=== PATIENT | female | born 1980 | race Caucasian/White ===

== ENCOUNTER 2019-04-19 14:11 | Outpatient (CLI) | payer BC | END 2019-04-19 14:12 | disposition home or self-care (01) | LOC: ULT 14:11 | PROVIDERS: ATTEND Family Medicine | DX: R06.02 Shortness of breath (principal); I08.1 Rheumatic disorders of both mitral and tricuspid valves | CPT/HCPCS: 93306 ==

== ENCOUNTER 2019-07-01 03:20 | Observation (INO) | payer BC ==
[2019-07-01] MEDS ORDERED: hydrALAZINE 20 MG/ML VIAL SLOW IVP PRN ×2 (03:33→03:56)
[2019-07-01] MEDS ORDERED: Betamet Acet/Betamet Na Ph 30 MG/5 ML VIAL ONE (03:54)
[2019-07-01] MEDS ORDERED: Acetaminophen 500 MG TAB PO PRN (03:56)
[2019-07-01] MEDS ORDERED: Promethazine HCl 25 MG/ML VIAL IM PRN (03:56)
[2019-07-01] MEDS ORDERED: Butorphanol Tartrate 1 MG/ML VIAL SLOW IVP PRN (03:56)
[2019-07-01] MEDS ORDERED: Ondansetron PF 4 MG/2 ML Vial IVP PRN (03:56)
[2019-07-01] MEDS ORDERED: Lactated Ringer's 1,000 ML IV SCH (04:00)
[2019-07-01] MEDS: Betamet Acet/Betamet Na Ph 30 MG/5 ML VIAL IM SCH (04:00)
--- NOTE | 2019-07-01 04:22 | PDOC.LDHP ---
Labor and Delivery H&P Chief complaint: other (bleeding) HPI: 39 y/o G1 at 34w5d, patient of Dr. Bateman, presents with sudden onset of vaginal bleeding. She was sleeping and awoke to blood dripping between her legs. Denies any pain but feels pressure, like her "pants are too tight." Denies LOF or decreased FM. Is currently undergoing treatment for yeast infection, on day 2 with Monistat 3. ROS neg for HEENT, cv, pulm, gi, gu, neuro, psych, skin, musculoskeletal or constitutional symptoms other than mentioned above. OB History Details: First Current complications: none Past Medical History: None Current medications: pre- vitamins Previous surgical history: other (wisdom teeth) Allergies/Adverse Reactions: Allergies Allergy/AdvReac Type Severity Reaction Status Date / Time No Known Allergies Allergy Verified 07/01/19 03:42 Social history: none - Physical Exam Vital signs reviewed and normal: yes General: NAD, resting Lungs: nonlabored breathing Abdomen: gravid Extremeties: no edema FHT: category 1 (140s, mod variability, + accels, no decels) [place] contractions every: q2 - Vaginal Exam cm dilated: 2 (SSE performed, small amount of bleeding noted) Effacement: 50% Station: -1 - Assessment 39 y/o G1 at 34w5d with PTL vs abruption. Patient stable at this time with small bleeding currently. status reassuring with reactive NST. - Plan Plan: admit to L&D -: -Celestone for lung maturity -Pad counts -IV fluids -Blood type pending -US to assess placental location, CHERRI
[2019-07-01] MEDS ORDERED: FLU VACC QS2019-20(6MOS UP)/PF 60 MCG/0.5 ML SYRINGE IM ONE (05:00)
[2019-07-01 05:15] VITALS: BMI 23.3
[2019-07-01] MEDS: Lactated Ringer's 1,000 ML IV SCH ×2 (05:53→10:16)
[2019-07-01 06:09] LABS: Hemoglobin 13.2 g/dL (12.0-16.0); Mean Corpuscular HGB CONC 33.6 g/dL (32.0-36.0); Mean Corpuscular Hemoglobin 30.2 pg (27.0-31.0); Mean Platelet Volume 8.5 fL (7.4-10.4); Platelet Count 270 thou/uL (130-400); RBC Distribution Width 11.9 % (11.5-14.5); Red Blood Cell (RBC) Count 4.36 mill/uL (4.20-5.40); White Blood Cell (WBC) Count 18.3 thou/uL (4.8-10.8)
[2019-07-01 06:18] LABS: Medtox Reader # READER 1
[2019-07-01 06:19] LABS: Amphetamine Not Detected (NotDetected); Barbiturates Screen Not Detected (NotDetected); Benzodiazepine Screen Not Detected (NotDetected); Cocaine Metabolite Screen Not Detected (NotDetected); Medtox Control Line Valid? VALID (VALID); Methadone Not Detected (NotDetected); Methamphetamine Not Detected (NotDetected); Opiate Screen Not Detected (NotDetected); Oxycodone Screen Not Detected (NotDetected); Phencyclidine (PCP) Not Detected (NotDetected); THC/Cannabinoid Screen Not Detected (NotDetected); Tricyclic Screen Not Detected (NotDetected)
[2019-07-01] MEDS ORDERED: Penicillin G Potassium 5 MILL.UNITS VIAL ONE (06:30)
[2019-07-01] MEDS ORDERED: Penicillin G Potassium 5 MILL.UNITS in Sodium Chloride 0.9% 100 ML IVPB SCH (06:30)
[2019-07-01 06:50] LABS: HBSAg Index 0.18 S/CO (0-0.99); Hep B Surf Ag Non-Reactive S/CO (NonReactive); Syphilis Antibody Nonreactive (Nonreactive); Syphilis Antibody Index 0.08 S/CO (<1.00 Non-Reactive)
--- NOTE | 2019-07-01 09:08 | ULT ---
PRELIMINARY REPORT/[facility]/EMERGENCY AFTER HOURS PROCEDURE: EXAM: US Obstetrical, Complete >14 weeks. CLINICAL HISTORY: Hx: vag bleeding at 34wks, r/o abruption. Previa ruled out by prior scan(per MD). see notes on last i mage. thanks TECHNIQUE: Transabdominal imaging of the maternal pelvis and a > 14 week gestation with image documentation. COMPARISON: None provided. FINDINGS: FETUS: There is a single living intrauterine gestation, estimated gestational age 34 weeks 5 days POSITION: position is cephalic. HEART RATE: The heart rate is 149 beats per minute. BIOMETRICS: Based on composite biometry, the estimated gestational age by ultrasound is 34 week s 5 days corresponding to a due date of 08/07/2019. The estimated weight is 2634 g. ANATOMIC SURVEY: The visualized anatomy is unremarkable. PLACENTA: The placenta is located to the right. No sonographic evidence for previa or abruption. AMNIOTIC FLUID: Within normal limits. The CHERRI is 19.1 cm CERVIX: Poorly demonstrated. IMPRESSION: Single viable intrauterine . No acute abnormality. Specifically there is no evidence for pl acental abruption ELECTRONICALLY SIGNED BY: Jerson Lara MD Jul 01, 2019 5:25:32 AM SCHEDULING ANALYST This report is intended for review by the ordering physician only, in accordance of law. If you recei ve this report in error, please call [facility] at [phone]. FINAL REPORT EMERGENCY AFTER HOURS LIMITED OB ULTRASOUND: DATE: 07/01/19 TIME: 0500 hours IMPRESSION: Single intrauterine at 34 weeks/5 days. heart rate at 149 bpm. No evidence for placental disruption. No evidence for placenta previa. CHERRI 19.1 cm. This report is in agreement with preliminary report by [facility]. POS: [facility]
[2019-07-01] MEDS: Penicillin G 2.5 MILL.units 2.5 MILL.UNITS in Premix Bag 1 BAG IVPB SCH ×3 (11:25→20:59)
[2019-07-01] MEDS ORDERED: Calcium Carbonate 500 MG ChewTAB PO PRN (20:06)
[2019-07-01] MEDS: Calcium Carbonate 500 MG ChewTAB PO PRN (20:28)
--- NOTE | 2019-07-01 21:51 | PDOC.EVN ---
Event Note - Event Note Event Note: Pt seen and examined. VSS. Uterus nontender. Pads examined as well - one overnight pad soaked with blood from home, one hospital pad with a moderate spot of blood. She did receive the first dose of celestone at 0400. I started PCN for possible labor. She is clare every 2-4 minutes and feeling moderately crampy. Advised continued bedrest and observation of bleeding. This either represents marginal abruption or labor. Continued observation for now. FHT category I. EGA 34w4d. Primip.
--- NOTE | 2019-07-01 21:53 | PDOC.EVN ---
Event Note - Event Note Event Note: Pt seen and reassessed. Bleeding has slowed significantly, now with only a small smear of blood in the pad. CTX have stopped as well. She feels nothing. Has had 12 hours of PCN for possible PTL. Can discontinue abx now. Will get second dose of celestone in the AM. Also discussed repeat U/S in AM to better characterize the placenta and fluid. Can shower in AM. FHT have been category I all day. No repeat vaginal exam b/c contractions have ceased. Continue external monitors.
[2019-07-02] MEDS: Betamet Acet/Betamet Na Ph 30 MG/5 ML VIAL IM SCH (04:11)
[2019-07-02] MEDS: Calcium Carbonate 500 MG ChewTAB PO PRN ×2 (04:23→07:51)
[2019-07-02 06:27] LABS: Hemoglobin 10.5 g/dL (12.0-16.0); Mean Corpuscular HGB CONC 34.6 g/dL (32.0-36.0); Mean Corpuscular Hemoglobin 31.2 pg (27.0-31.0); Mean Corpuscular Volume 90.1 fL (78.0-98.0); Mean Platelet Volume 8.2 fL (7.4-10.4); Platelet Count 260 thou/uL (130-400); RBC Distribution Width 11.7 % (11.5-14.5); Red Blood Cell (RBC) Count 3.36 mill/uL (4.20-5.40); White Blood Cell (WBC) Count 30.1 thou/uL (4.8-10.8)
[2019-07-02] MEDS: Lactated Ringer's 1,000 ML IV SCH (08:01)
--- NOTE | 2019-07-02 08:09 | ULT ---
Exam: LIMITED OB ULTRASOUND: HISTORY: Vaginal bleeding. 34 weeks . COMPARISON: 06/21/2019. FINDINGS: Single intrauterine gestation. Vertex presentation. Limited evaluation the cervix. Placenta is located to the right side of the patient. heart tones: 132 bpm. Amniotic fluid index 19.1 cm. Estimated weight 2649 g +/- 392 g. biometry: BPD: 8.73 cm, 35 weeks 2 days Head circumference: 30.89 cm, 34 weeks 3 days Abdominal circumference: 31.83 cm, 35 weeks 5 days Femur length: 6.78 cm, 34 weeks 6 days Average age by sonography is 35 weeks 1 day. Estimated delivery date by sonography is 08/05/2019. IMPRESSION: Single intrauterine gestation with heart tones. No significant interval change. Transcribed Date/Time: 07/02/2019 8:50 AM
[2019-07-02 08:56] VITALS: BP 101/50; TEMP 99.2
[2019-07-02] MEDS ORDERED: Famotidine 20 MG TAB PO SCH (21:00)
== END 2019-07-02 12:40 | disposition home health service (06) ==
LOC: L&D/OP 03:20 → INTOOBSV 17:54 → L&D 17:54
PROVIDERS: ADMIT Family Medicine; ATTEND Family Medicine
DX: O46.93 Antepartum hemorrhage, unspecified, third trimester (principal); O98.813 Other maternal infectious and parasitic diseases complicating pregnancy, third trimester; B37.9 Candidiasis, unspecified; O09.513 Supervision of elderly primigravida, third trimester; Z3A.34 34 weeks gestation of pregnancy
CPT/HCPCS: 36415; 76815; 80306; 85027; 86780; 86850; 86900; 86901; 87340; 96361; 96372; 96374; 96376; 99285; G0378; J0702; J2540; J3490

== ENCOUNTER → 2019-07-04 | Day surgery (SDC) | payer BC ==
[~2019-07-04] MED LIST: hydrALAZINE 20 MG/ML VIAL SLOW IVP PRN
--- NOTE | 2019-07-05 08:18 | SS ---
DATE OF ADMISSION: 07/04/2019 DATE OF DISCHARGE: 07/04/2019 TIME OF SERVICE: 2000 hours. PRESENTING COMPLAINTS: Upper abdominal pressure and polydipsia at 35 weeks to 36 weeks gestation. HISTORY OF PRESENT ILLNESS: Jessi Garcia is a 39-year-old primigravida. She sees Dr. Gilmer Bateman. She was in the hospital for 2 doses of corticosteroids with supracervical bleeding 3 days ago. She returns reporting upper abdominal pressure. No vaginal bleeding. No rupture of membranes, active fetus. She also states that she has been extremely thirsty and has drank six ice teas and a cranberry juice today. She denies headache, scotoma or blurred vision. She denies right upper quadrant pain. OBSTETRICS AND GYNECOLOGY HISTORY: Primigravida. Antepartum record not available on the unit. PAST MEDICAL HISTORY: None. PAST SURGICAL HISTORY: None. ALLERGIES: DENIES. MEDICATIONS: vitamins and corticosteroids on 07/01. FAMILY HISTORY: Noncontributory. REVIEW OF SYSTEMS: Noncontributory. PHYSICAL EXAMINATION: GENERAL: White female in no acute distress. VITAL SIGNS: Blood pressure 113/82, pulse 85, respirations 18, temperature 98.6. HEENT: Within normal limits. LUNGS: Clear to auscultation bilaterally. HEART: Regular rate and rhythm. ABDOMEN: Soft and nontender with occasional contractions. FHTs 140s. Vulva without lesions. Vagina without discharge. No bleeding noted. Cervix 2, 50 and -2, cephalic blots with ease was consistent with last exam on previous admission. monitoring was carried out for 130 minutes, which revealed contractions cues 3-5 minutes. These are indelible and not consistent with active labor. heart rate tracing is category I. IMPRESSION: Uterine irritability. No evidence of active labor at 35 and a half weeks gestation, status post corticosteroids 3 days ago. PLAN: Reassurance. ER precautions for active labor, rupture of membranes, vaginal bleeding. The patient is to keep scheduled followup with Dr. Bateman. Job ID: [id number]
== END ==
LOC: L&D/OP 18:43
PROVIDERS: ATTEND Family Medicine
DX: O47.03 False labor before 37 completed weeks of gestation, third trimester (principal); O99.89 Other specified diseases and conditions complicating pregnancy, childbirth and the puerperium; R63.1 Polydipsia; Z3A.35 35 weeks gestation of pregnancy

== ENCOUNTER 2019-07-19 03:10 | Day surgery (SDC) | payer BC ==
[2019-07-19 04:10] VITALS: BP 106/66; TEMP 98.6; BMI 23.3
[2019-07-19] MEDS ORDERED: hydrALAZINE 20 MG/ML VIAL SLOW IVP PRN (04:18)
--- NOTE | 2019-07-19 04:21 | PDOC.LDHP ---
Labor and Delivery H&P Chief complaint: other (Vag spotting) HPI: Patient of Dr Bateman Pt seen at bedside 39 yo G1 at 37 weeks 2 days here for vag spotting. No clots, no LOF, good FM. States was here for similar and workup was negative. Review of Systems: completed and as per HPI Current gestational age (weeks): 37 (2 days) Dating criteria: last menstrual period Grav: 1 Current complications: none Abnormal US findings: No Current medications: pre- vitamins Allergies/Adverse Reactions: Allergies Allergy/AdvReac Type Severity Reaction Status Date / Time No Known Allergies Allergy Verified 07/19/19 04:05 Social history: none - Physical Exam Vital signs reviewed and normal: yes (106/66 98.6 93 20) General: NAD Abdomen: NTTP Extremeties: no edema FHT: category 1 [place] contractions every: rare - Vaginal Exam cm dilated: 2 Effacement: 25% Station: -2 - Assessment Early term, reactive NST...o active VB. Vag spotting liklet from CX remoldeling. - Plan Plan: observation in L&D (reassurrance given. Continue to obs for anout 30 more minutes. No evidence labor or issue at this time.)
--- NOTE | 2019-07-19 04:30 | PDOC.EVN ---
Event Note - Event Note Event Note: At bedside, as there are contractions on toco...obs for 2 hrs with cervical recheck then
== END 2019-07-19 06:16 | disposition home or self-care (01) ==
LOC: L&D/OP 03:10
PROVIDERS: ATTEND Family Medicine
DX: O26.853 Spotting complicating pregnancy, third trimester (principal); O47.1 False labor at or after 37 completed weeks of gestation; O09.513 Supervision of elderly primigravida, third trimester; Z3A.37 37 weeks gestation of pregnancy
CPT/HCPCS: 99283

== ENCOUNTER 2019-07-29 01:46 | Inpatient (IN) | payer BC ==
[2019-07-29] MEDS ORDERED: Lidocaine 1% (PF) 30 ML VIAL ONE (02:10)
[2019-07-29] MEDS ORDERED: NS / Oxytocin 40 units/1000ml 1,000 ML ONE (02:10)
[2019-07-29] MEDS ORDERED: Ibuprofen 800 MG TAB PO PRN (02:16)
[2019-07-29] MEDS ORDERED: Ondansetron PF 4 MG/2 ML Vial IVP PRN ×2 (02:16→08:02)
[2019-07-29] MEDS ORDERED: Lidocaine 1% (PF) 30 ML VIAL SC PRN (02:16)
[2019-07-29] MEDS ORDERED: NS / Oxytocin 40 units/1000ml 1,000 ML IV PRN (02:16)
[2019-07-29] MEDS ORDERED: hydrALAZINE 20 MG/ML VIAL SLOW IVP PRN ×2 (02:16→08:02)
[2019-07-29] MEDS ORDERED: HYDROcodone/Acetaminophen 5/325 mg Tablet PO PRN (02:16)
[2019-07-29] MEDS ORDERED: Lactated Ringer's 1,000 ML IV SCH ×2 (02:30)
[2019-07-29] MEDS: Butorphanol Tartrate 1 MG/ML VIAL SLOW IVP PRN ×2 (02:32→04:21)
[2019-07-29 02:36] LABS: Hemoglobin 13.7 g/dL (12.0-16.0); Mean Corpuscular HGB CONC 34.6 g/dL (32.0-36.0); Mean Corpuscular Hemoglobin 30.6 pg (27.0-31.0); Mean Corpuscular Volume 88.5 fL (78.0-98.0); Mean Platelet Volume 8.8 fL (7.4-10.4); Platelet Count 276 thou/uL (130-400); RBC Distribution Width 12.6 % (11.5-14.5); Red Blood Cell (RBC) Count 4.46 mill/uL (4.20-5.40)
--- NOTE | 2019-07-29 02:43 | PDOC.LDHP ---
Labor and Delivery H&P Chief complaint: contractions, loss of fluid (SROM at 0130) HPI: SROM at home with clear fluid at 0130am. CTX started after that. Arrived to L&D at 0200 in transition. Current gestational age (weeks): 38 Due date: 08/07/19 Dating criteria: last menstrual period, first trimester ultrasound Grav: 1 Para: 0 Current complications: other (Hemorrhage at 35 weeks. Given steroids. [place] to be from the cervix. No evidence on U/S of abruption. Had two more episodes of bleeding with clot since then.) Abnormal US findings: No Current medications: pre-vito vitamins Previous surgical history: none Allergies/Adverse Reactions: Allergies Allergy/AdvReac Type Severity Reaction Status Date / Time No Known Allergies Allergy Verified 07/19/19 04:05 Social history: none - Physical Exam Vital signs reviewed and normal: yes General: breathing through contractions Heart: RRR Lungs: CTAB Abdomen: gravid Extremeties: no edema FHT: category 1, variability present - Vaginal Exam cm dilated: 8 Effacement: 90% Station: 1+ - OB Labs Blood type: O RH: positive Antibody Screen: negative HIV: negative RPR: negative HEPSAg: negative 1 hour GCT: negative GBS: negative Urine drug screen: not done Rubella: immune - Assessment L&D Assessment: term patient in labor - Plan Plan: admit to L&D, labor augmentation if indicated, informed consent obtained, anesthesia consult for pain management
[2019-07-29 02:44] VITALS: BMI 24.0
[2019-07-29 03:13] LABS: HBSAg Index 0.14 S/CO (0-0.99); Hep B Surf Ag Non-Reactive S/CO (NonReactive)
[2019-07-29] MEDS ORDERED: Misoprostol 200 MCG TAB ONE (04:30)
--- NOTE | 2019-07-29 04:49 | PDOC.OPDEL ---
OB Operative/Delivery Note Delivery Dr/Surgeon: Fransico Pre-Delivery Diagnosis: active labor Procedure/Post Delivery Dx: spontaneous vaginal delivery (Head OA, nuchal cord, shoulders and body easily followed then disentangled from the cord.) Weeks gestation: 38 Anesthesia: local - Findings A Sex: male - 1 min: 9 - 5 min: 9 - Additional Findings/Plan Placenta delivered: spontaneous (Intact, 3 vessel cord. Boggy uterus after placenta with clot, resolved with bimanual massage and evacuation of clot. Cytotec given x 800mcg rectally and pitocin running.) Repaired Obstetrical Laceration: 2nd degree (Repaired with 2.0 vicryl suture with good hemostasis.) Estimated blood loss: 750 Post delivery plan: routine recovery
[2019-07-29] MEDS ORDERED: Methylergonovine 0.2 MG/ML VIAL ONE (05:02)
--- NOTE | 2019-07-29 05:18 | PDOC.EVN ---
Event Note - Event Note Event Note: Went to reevaluate the patient and baby. Mom with large clot and boggy uterus again despite pitocin and cytotec given immediately after delivery. Called for methergine and that was given. Bimanual massage done with good response in uterine tone and bleeding. Will watch carefully for now, if not improving will give hemabate as well.
[2019-07-29 05:34] LABS: Syphilis Antibody Nonreactive (Nonreactive); Syphilis Antibody Index 0.06 S/CO (<1.00 Non-Reactive)
[2019-07-29] MEDS ORDERED: Milk Of Magnesia 30 ML UDCUP PO PRN (08:02)
[2019-07-29] MEDS ORDERED: Bisacodyl 10 MG SUPP PR PRN (08:02)
[2019-07-29] MEDS ORDERED: Benzocaine-Menthol 82.5 ML CAN TOP PRN (08:02)
[2019-07-29] MEDS ORDERED: NS / Oxytocin 40 units/1000ml 1,000 ML IV SCH (08:02)
[2019-07-29] MEDS ORDERED: Adacel (T-DAP) 0.5 ML SYRINGE IM ONE (08:02)
[2019-07-29] MEDS: Ferrous Sulfate 325 MG TAB PO SCH ×2 (09:02→17:33)
[2019-07-29] MEDS: Prenatal Vitamin 1 TAB PO SCH (11:06)
[2019-07-29] MEDS: Docusate Calcium (SURFAK) 240 MG CAP PO SCH ×2 (11:07→21:43)
[2019-07-29] MEDS: Ibuprofen 800 MG TAB PO SCH ×2 (11:07→18:29)
[2019-07-29] MEDS: Lanolin Ointment 7 GM TUBE TOP PRN (11:07)
[2019-07-30] MEDS: Ibuprofen 800 MG TAB PO SCH ×5 (02:30→21:40)
[2019-07-30 05:57] LABS: #Eosinphils 0.2 thou/uL (0.0-0.7); #Lymphocytes 3.5 thou/uL (1.20-3.40); #Monocytes 1.1 thou/uL (0.11-0.59); #Neutrophils 13.3 thou/uL (1.40-6.50); %Basophils 0.1 % (0.0-1.0); %Eosinophils 0.9 % (0.0-10.0); %Lymphocytes 19.6 % (21.0-51.0); %Monocytes 5.9 % (0.0-10.0); %Neutrophils 73.6 % (42.0-75.0); Hemoglobin 7.5 g/dL (12.0-16.0); Mean Corpuscular HGB CONC 31.9 g/dL (32.0-36.0); Mean Corpuscular Hemoglobin 28.9 pg (27.0-31.0); Mean Corpuscular Volume 90.4 fL (78.0-98.0); Mean Platelet Volume 7.9 fL (7.4-10.4); Platelet Count 205 thou/uL (130-400); RBC Distribution Width 12.8 % (11.5-14.5); Red Blood Cell (RBC) Count 2.61 mill/uL (4.20-5.40); White Blood Cell (WBC) Count 18.1 thou/uL (4.8-10.8)
[2019-07-30] MEDS: Ferrous Sulfate 325 MG TAB PO SCH ×2 (08:44→17:54)
[2019-07-30] MEDS: Docusate Calcium (SURFAK) 240 MG CAP PO SCH ×2 (08:44→21:40)
[2019-07-30] MEDS: Prenatal Vitamin 1 TAB PO SCH (08:44)
[2019-07-30] MEDS: Lanolin Ointment 7 GM TUBE TOP PRN (17:55)
[2019-07-31] MEDS: Ibuprofen 800 MG TAB PO SCH ×2 (06:18→13:45)
[2019-07-31 08:47] VITALS: TEMP 97.8
[2019-07-31] MEDS: Prenatal Vitamin 1 TAB PO SCH (09:29)
[2019-07-31] MEDS: Ferrous Sulfate 325 MG TAB PO SCH (09:29)
[2019-07-31] MEDS: Docusate Calcium (SURFAK) 240 MG CAP PO SCH (09:29)
[2019-07-31 13:51] VITALS: BP 109/53
--- NOTE | 2019-08-01 22:12 | PDOC.PP ---
Post Progress Note Post Day #: 1 Subjective: Doing well. Working on . Sleepy baby. Mom is feeling well. Has been up to bathroom, no dizziness or weakness on standing. Bleeding stabilized overnight. PO intake tolerated: yes Flatus: yes Ambulation: yes Weight Weight 136 lb - Physical Examination General: NAD Cardiovascular: no m/r/g, RRR Respiratory: clear to auscultation bilaterally, non-labored breathing Abdominal: + bowel sounds, lochia, no distention, appropriately TTP Result Diagrams: 07/30/19 05:40 Additional Labs: Post Labs Blood Type O POSITIVE 07/29/19 02:22 Hep Bs Antigen Non-Reactive S/CO (NonReactive) 07/29/19 02:22 (1) Vaginal delivery Code(s): O80 - ENCOUNTER FOR FULL-TERM UNCOMPLICATED DELIVERY Status: Ruled- out (2) hemorrhage Code(s): O72.1 - OTHER IMMEDIATE HEMORRHAGE Status: Acute - Assessment/Plan Routine care Bleeding is stable, no s/s of anemia Continue to work on BF Home tomorrow.
--- NOTE | 2019-08-01 22:14 | PDOC.PP ---
Post Progress Note Post Day #: 2 Subjective: Doing well. much better. PO intake tolerated: yes Flatus: yes Ambulation: yes Weight Weight 136 lb - Physical Examination General: NAD Cardiovascular: no m/r/g, RRR Respiratory: clear to auscultation bilaterally, non-labored breathing Abdominal: + bowel sounds, lochia, no distention, appropriately TTP Result Diagrams: 07/30/19 05:40 Additional Labs: Post Labs Blood Type O POSITIVE 07/29/19 02:22 Hep Bs Antigen Non-Reactive S/CO (NonReactive) 07/29/19 02:22 (1) Vaginal delivery Code(s): O80 - ENCOUNTER FOR FULL-TERM UNCOMPLICATED DELIVERY Status: Ruled- out (2) hemorrhage Code(s): O72.1 - OTHER IMMEDIATE HEMORRHAGE Status: Acute - Assessment/Plan Doing well on PP day 2 Routine care D/C home F/U in 6 weeks Will see Baby in 2 days
== END 2019-07-31 15:30 | disposition home or self-care (01) | DRG 806 ==
LOC: L&D/OP 01:46 → L&D 02:22 → 3SW 09:50
PROVIDERS: ADMIT Family Medicine; ATTEND Family Medicine
PROC: 10E0XZZ Delivery of Products of Conception, External Approach (ICD-10-PCS; principal; 2019-07-29)
PROC: 0KQM0ZZ Repair Perineum Muscle, Open Approach (ICD-10-PCS; 2019-07-29)
DX: O69.1XX0 Labor and delivery complicated by cord around neck, with compression, not applicable or unspecified (principal); O72.1 Other immediate postpartum hemorrhage; Z37.0 Single live birth; O70.1 Second degree perineal laceration during delivery; Z3A.38 38 weeks gestation of pregnancy; N85.8 Other specified noninflammatory disorders of uterus; O99.89 Other specified diseases and conditions complicating pregnancy, childbirth and the puerperium
CPT/HCPCS: 36415; 85025; 85027; 86780; 86850; 86900; 86901; 87340; 90715; 99285; J0595; J2001; J2210